=== PATIENT | female | born 1995 | race Caucasian/White ===

== ENCOUNTER 2016-09-13 20:47 | Emergency (ER) | payer MEDICAID ==
[2016-09-13 21:14] VITALS: BP 155/79
[2016-09-13] MEDS ORDERED: Amoxicillin 500 MG Cap PO ONE (21:40)
--- NOTE | 2016-09-13 21:40 | EDM.PDOC ---
ED HPI GENERAL MEDICAL PROBLEM - General Chief Complaint: ENT Problem Stated Complaint: TOOTHACHE RIGHT UPPER Time Seen by Provider: 09/13/16 21:35 Source of Information: Reports: Patient, Family - History of Present Illness INITIAL COMMENTS - FREE TEXT/NARRATIVE: With broken tooth to right upper month x5 months. With recent increase in dental pain. Is taking Ibuprofen for pain. Last dose 3 hours ago. Denies fever or chills. Unable to get a dental appointment until March. Onset: Gradual Onset Date: 09/11/16 Onset Time: 20:00 Duration: Waxing/Waning Quality: Reports: Dull, Sharp Improves with: Reports: None Worsens with: Reports: Cold Therapy, Eating Associated Symptoms: Reports: No Other Symptoms Right upper front tooth Pain Score (Numeric/FACES): 8 - Related Data Allergies Allergy/AdvReac Type Severity Reaction Status Date / Time cefprozil [From Cefzil] Allergy Hives Verified 09/13/16 21:30 cephalexin [From Keflex] Allergy Hives Verified 09/13/16 21:24 trazodone Allergy Hives Verified 09/13/16 21:24 Home Meds: Home Meds Albuterol [Ventolin HFA] 1 puff INH Q4H PRN 06/29/13 [History] FLUoxetine HCl [Prozac] 30 mg PO DAILY 06/29/13 [History] Omeprazole [Prilosec] 20 mg PO DAILY 06/29/13 [History] QUEtiapine Fumarate [Seroquel] 25 mg PO DAILY 06/29/13 [History] Social & Family History - Tobacco Use Smoking Status *Q: Never Smoker Second Hand Smoke Exposure: No - Caffeine Use Caffeine Use: Reports: Soda - Recreational Drug Use Recreational Drug Use: Yes ED ROS ENT - Review of Systems Review Of Systems: See Below HEENT: Reports: Dental Pain ED EXAM, ENT - Physical Exam Exam: See Below Exam Limited By: No Limitations General Appearance: Alert, WD/WN, No Apparent Distress Mouth/Throat: Normal Inspection, Normal Gums, Normal Lips, Normal Oropharynx, Normal Teeth, Dental Tenderness (broken tooth to right upper incisor) Head: Atraumatic, Normocephalic Neck: Normal Inspection, Supple, Non-Tender, Full Range of Motion Respiratory/Chest: No Respiratory Distress, Lungs Clear, Normal Breath Sounds, No Accessory Muscle Use, Chest Non-Tender Cardiovascular: Normal Peripheral Pulses, Regular Rate, Rhythm, No Edema, No Gallop, No JVD, No Murmur, No Rub Skin: Warm, Dry, Intact, Normal Color, No Rash Lymphatic: No Adenopathy Course - Vital Signs Last Recorded V/S: Last Vital Signs Temp 97.5 F 09/13/16 21:12 Pulse 67 09/13/16 21:12 Resp 16 09/13/16 21:12 BP 155/79 H 09/13/16 21:12 Pulse Ox 94 L 09/13/16 21:12 Departure - Departure Time of Disposition: 21:43 Disposition: Home, Self-Care 01 Condition: good Clinical Impression: Pain, dental - Discharge Information Forms: ED Department Discharge Additional Instructions: Rx for Amoxicillin 1000mg BID x 7 days given. 1st dose given here. Stress the need to have the tooth pulled. May use Tylenol or Ibuprofen as needed for pain. Followup as needed. - Problem List & Annotations (1) Pain, dental SNOMED Code(s): 99944601 Code(s): K08.89 - OTHER SPECIFIED DISORDERS OF TEETH AND SUPPORTING STRUCTURES Status: Acute Priority: Low Current Visit: Yes
== END 2016-09-13 22:08 | disposition home or self-care (01) ==
LOC: JP.ED 20:47
DX: K08.89 Other specified disorders of teeth and supporting structures (principal); Z88.8 Allergy status to other drugs, medicaments and biological substances; Z79.899 Other long term (current) drug therapy
CPT/HCPCS: 99283; A9270

== ENCOUNTER 2017-03-19 16:22 | Emergency (ER) | payer MEDICAID ==
[2017-03-19 16:36] VITALS: BP 143/88
--- NOTE | 2017-03-19 17:12 | EDM.PDOC ---
ED HPI GENERAL MEDICAL PROBLEM - General Chief Complaint: ENT Problem Stated Complaint: CONJESTION; SINUSES Time Seen by Provider: 03/19/17 17:00 Source of Information: Reports: Patient History Limitations: Reports: No Limitations - History of Present Illness INITIAL COMMENTS - FREE TEXT/NARRATIVE: 21-year-old female with worsening nasal congestion over the past week to 10 days. She is blowing persistent yellowish drainage from her nose. She has increased pressure over the frontal sinuses. She was seen in the clinic yesterday and was told she has a "cold" and started on what sounds like steroid nasal spray. She is worse today so came into the emergency room to get antibiotics. This is not a chronic recurring condition for her. No fevers or chills, some nausea but no vomiting, no sore throat or cough. Onset: Gradual Duration: Week(s): (2 weeks) Severity: Mild Face Pain Score (Numeric/FACES): 5 - Related Data Allergies Allergy/AdvReac Type Severity Reaction Status Date / Time cefprozil [From Cefzil] Allergy Hives Verified 03/19/17 16:47 cephalexin [From Keflex] Allergy Hives Verified 03/19/17 16:47 trazodone Allergy Hives Verified 03/19/17 16:47 Home Meds: Home Meds Albuterol [Ventolin HFA] 1 puff INH Q4H PRN 06/29/13 [History] FLUoxetine HCl [Prozac] 30 mg PO DAILY 06/29/13 [History] Omeprazole [Prilosec] 20 mg PO DAILY 06/29/13 [History] QUEtiapine Fumarate [Seroquel] 25 mg PO DAILY 06/29/13 [History] Past Medical History Respiratory History: Reports: Asthma Gastrointestinal History: Reports: GERD 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: Psychiatric History: Reports: Anxiety, Autism, Depression - Past Surgical History HEENT Surgical History: Reports: Tonsillectomy Cardiovascular Surgical History: Reports: None Respiratory Surgical History: Reports: None GI Surgical History: Reports: Appendectomy Endocrine Surgical History: Reports: None Neurological Surgical History: Reports: None Musculoskeletal Surgical History: Reports: None Dermatological Surgical History: Reports: None Social & Family History - Family History Family Medical History: Unobtainable - Tobacco Use Smoking Status *Q: Never Smoker Second Hand Smoke Exposure: No - Caffeine Use Caffeine Use: Reports: Soda - Recreational Drug Use Recreational Drug Use: No ED ROS ENT - Review of Systems Review Of Systems: See Below Constitutional: Reports: Malaise. Denies: Fever, Chills HEENT: Reports: Sinus Problem (Pressure and pain). Denies: Ear Pain, Throat Pain Respiratory: Denies: Shortness of Breath, Cough Cardiovascular: Denies: Chest Pain GI/Abdominal: Denies: Nausea, Vomiting Skin: Reports: No Symptoms Neurological: Reports: Headache ED EXAM, ENT - Physical Exam Exam: See Below Exam Limited By: No Limitations General Appearance: Alert, No Apparent Distress (Patient does look uncomfortable but not distressed) Eye Exam: Bilateral Eye: Normal Inspection Ears: Normal TMs Nose: Injected Turbinates Mouth/Throat: Normal Inspection (Tonsils are absent) Head: Atraumatic, Sinus Tenderness (She does have fairly significant percussion tenderness over the frontal sinuses and maxillary sinuses). No: Facial Swelling Respiratory/Chest: No Respiratory Distress, Lungs Clear Course - Vital Signs Last Recorded V/S: Last Vital Signs Temp 96.6 F 03/19/17 16:46 Pulse 101 H 03/19/17 16:46 Resp 16 03/19/17 16:46 BP 143/88 H 03/19/17 16:46 Pulse Ox 96 03/19/17 16:46 - Re-Assessments/Exams Free Text/Narrative Re-Assessment/Exam: 03/19/17 17:10 Explained to the patient that this is likely inflammatory such as viral or allergy and I believe the steroids will help if she gives it a try. She was very disappointed and is convinced she needs antibiotics, even after I explained that she may get side effects of the antibiotics which are worse than the treatment she still wanted to try. I agreed with amoxicillin 500 mg 3 times a day for the next 10 days, and she is to finish the prescription if she is improving in the next 2-4 days. She can continue with the nasal spray as directed. Departure - Departure Time of Disposition: 17:21 Disposition: Home, Self-Care 01 Condition: Good Clinical Impression: Sinusitis Qualifiers: Sinusitis location: frontal Chronicity: acute Recurrence: non-recurrent Qualified Code(s): J01.10 - Acute frontal sinusitis, unspecified - Discharge Information Instructions: Sinusitis, Adult, [id number] Referrals: Layne Walter PA [Primary Care Provider] - Forms: ED Department Discharge Care Plan Goals: Take antibiotic 3 times a day until gone, unless not improving recheck in 3-4 days. Continue with nasal spray as directed.
== END 2017-03-19 17:20 | disposition home or self-care (01) ==
LOC: JP.ED 16:22
DX: J01.10 Acute frontal sinusitis, unspecified (principal); J45.909 Unspecified asthma, uncomplicated; Z79.899 Other long term (current) drug therapy; Z88.1 Allergy status to other antibiotic agents; Z88.8 Allergy status to other drugs, medicaments and biological substances
CPT/HCPCS: 99283

== ENCOUNTER 2020-11-15 18:16 | Emergency (ER) | payer MEDICAID ==
[2020-11-15 18:30] VITALS: BP 135/96; PULSE 96
[2020-11-15] MEDS ORDERED: Tetracaine HCl/PF 0.5% 4 ML Bottle EYELF ONE (19:02)
--- NOTE | 2020-11-15 19:05 | EDM.PDOC ---
ED HPI GENERAL MEDICAL PROBLEM - General Chief Complaint: Eye Problems Stated Complaint: GLASS IN LEFT EYE Time Seen by Provider: 11/15/20 19:03 Source of Information: Reports: Patient History Limitations: Reports: No Limitations - History of Present Illness INITIAL COMMENTS - FREE TEXT/NARRATIVE: pt had a piece of glass in the corner of her left eye. Onset: Today, Sudden Duration: Hour(s): Location: Reports: Face Associated Symptoms: Reports: No Other Symptoms Left Eye Pain Score (Numeric/FACES): 4 - Related Data Allergies Allergy/AdvReac Type Severity Reaction Status Date / Time cefprozil [From Cefzil] Allergy Hives Verified 11/15/20 18:56 cephalexin [From Keflex] Allergy Hives Verified 11/15/20 18:56 kiwi Allergy Anaphylactic Verified 11/15/20 18:56 Shock trazodone Allergy Hives Verified 11/15/20 18:56 Home Meds: Home Meds Albuterol [Ventolin HFA] 1 puff INH Q4H PRN 06/29/13 [History] FLUoxetine HCl [Prozac] 30 mg PO DAILY 06/29/13 [History] QUEtiapine Fumarate [Seroquel] 25 mg PO DAILY 06/29/13 [History] Past Medical History Respiratory History: Reports: Asthma Gastrointestinal History: Reports: GERD [employer]IT[employer]ER History: Reports: Psychiatric History: Reports: Anxiety, Autism, Depression - Past Surgical History HEENT Surgical History: Reports: Tonsillectomy Cardiovascular Surgical History: Reports: None Respiratory Surgical History: Reports: None GI Surgical History: Reports: Appendectomy Endocrine Surgical History: Reports: None Neurological Surgical History: Reports: None Musculoskeletal Surgical History: Reports: None Dermatological Surgical History: Reports: None Social & Family History - Family History Family Medical History: Unobtainable - Tobacco Use Tobacco Use Status *Q: Current Every Day Tobacco User Years of Tobacco use: 1 Packs/Tins Daily: 0.5 - Caffeine Use Caffeine Use: Reports: None - Recreational Drug Use Recreational Drug Use: No ED ROS GENERAL - Review of Systems Review Of Systems: See Below Constitutional: Reports: No Symptoms HEENT: Reports: Eye Pain Respiratory: Reports: No Symptoms Cardiovascular: Reports: No Symptoms Endocrine: Reports: No Symptoms GI/Abdominal: Reports: No Symptoms : Reports: No Symptoms Musculoskeletal: Reports: No Symptoms Skin: Reports: No Symptoms ED EXAM GENERAL W FULL EYE - Physical Exam Exam: See Below Text/Narrative:: pt arrived with pain and burning in the left eye. She is having difficulty opening her eye and therefore her vision is blurry. Exam Limited By: No Limitations General Appearance: Alert, Anxious, Mild Distress, Cachetic (tetracaine was ins erted in the eye and she was more comfortable. no foreign body could bee seen. The eye was stained and she has a superficial corneal abasion in the mid portion of the cornea. She has no bleeding or sign of laceration. ), Other (pt has some swelling at the corner of her left eye where she had a piece of glass sitting. A glass broke and fell her direction. ) Ears: Normal TMs Nose: Normal Inspection Throat/Mouth: Normal Inspection Head: Atraumatic Course - Vital Signs Last Recorded V/S: Last Vital Signs Temp 35.7 C L 11/15/20 18:55 Pulse 96 11/15/20 18:55 Resp 16 11/15/20 18:55 BP 135/96 H 11/15/20 18:55 Pulse Ox 97 11/15/20 18:55 - Orders/Labs/Meds Orders: Active Orders 24 hr Category Date Time Status Gentamicin [Gentak 0.3% Ophth Oint] Med 11/15/20 21:00 Ordered 1 gm EYELF TID Meds: Medications Discontinued Medications Generic Name Dose Route Start Last Admin Trade Name Audiq PRN Reason Stop Dose Admin Tetracaine HCl 1 ml 11/15/20 19:02 11/15/20 19:07 Tetracaine Hcl/Pf 0.5% 4 Ml Bottle EYELF 11/15/20 19:03 1 ml ASDIRECTED ONE Administration - Re-Assessments/Exams Free Text/Narrative Re-Assessment/Exam: 11/15/20 19:29 pt had further tetracin inserted. Gentamycin eye ointment was inserted in the eye and the eye was patched. Departure - Departure Time of Disposition: 19:31 Disposition: Home, Self-Care 01 Condition: Fair Clinical Impression: Corneal abrasion, left - Discharge Information Referrals: PCP,None [Primary Care Provider] - Forms: ED Department Discharge Care Plan Goals: eye was patched in ER with gentamycin ointment, leave patch on for the next 12 hours then remove and start gentamycin drops tid. Motrin 600mg can be used for pain. If there is concern about blurry vision in the next 2 days either check vback at the ER or go to the eye clinic. gentmycin eye drop 2-3 dropd tic Sepsis Event Note (ED) - Evaluation Sepsis Screening Result: No Definite Risk - Focused Exam Vital Signs: Vital Signs Temp Pulse Resp BP Pulse Ox 11/15/20 18:55 35.7 C L 96 16 135/96 H 97 11/15/20 18:28 35.7 C L 96 16 135/96 H 97 - My Orders Last 24 Hours: My Active Orders 11/15/20 21:00 Gentamicin [Gentak 0.3% Ophth Oint] 1 gm EYELF TID - Assessment/Plan Last 24 Hours: My Active Orders 11/15/20 21:00 Gentamicin [Gentak 0.3% Ophth Oint] 1 gm EYELF TID
[2020-11-15] MEDS ORDERED: Ibuprofen 600 MG Tab PO ONE (19:30)
== END 2020-11-15 19:48 | disposition home or self-care (01) ==
LOC: JP.ED 18:16
DX: S05.02XA Injury of conjunctiva and corneal abrasion without foreign body, left eye, initial encounter (principal); Z91.018 Allergy to other foods; Z88.1 Allergy status to other antibiotic agents; Z88.5 Allergy status to narcotic agent; Z72.0 Tobacco use; W25.XXXA Contact with sharp glass, initial encounter
CPT/HCPCS: 99283; A9270

== ENCOUNTER 2021-11-11 16:46 | Emergency (ER) | payer MEDICAID ==
[2021-11-11] MEDS ORDERED: Ondansetron 4 MG/2 ML SDV IVPUSH ONE (18:47)
[2021-11-11] MEDS ORDERED: Sodium Chloride 0.9% 1,000 ML IV SCH (19:00)
[2021-11-11 20:16] VITALS: BP 133/100; PULSE 80
== END 2021-11-11 20:37 | disposition home or self-care (01) ==
LOC: JP.ED 16:46
DX: E86.0 Dehydration (principal); N39.0 Urinary tract infection, site not specified; J45.909 Unspecified asthma, uncomplicated; F17.210 Nicotine dependence, cigarettes, uncomplicated; Z88.1 Allergy status to other antibiotic agents; Z91.018 Allergy to other foods; Z88.8 Allergy status to other drugs, medicaments and biological substances; Z79.899 Other long term (current) drug therapy; Z20.822 Contact with and (suspected) exposure to COVID-19
CPT/HCPCS: 36415; 80048; 80305; 81001; 81025; 83735; 85025; 87635; 96360; 99284; J7030; U0002

== ENCOUNTER 2022-02-12 23:12 | Emergency (ER) | payer MEDICAID ==
[2022-02-12 23:30] VITALS: BP 147/96; PULSE 97
[2022-02-13 00:26] LABS: ESTIMATED GFR 104 mL/min (>60)
[2022-02-13 00:43] LABS: CORONAVIRUS COVID-19 NAA NEGATIVE (NEGATIVE)
== END 2022-02-13 01:16 | disposition home or self-care (01) ==
LOC: JP.ED 23:12
DX: R06.02 Shortness of breath (principal); B97.4 Respiratory syncytial virus as the cause of diseases classified elsewhere; Z20.822 Contact with and (suspected) exposure to COVID-19
CPT/HCPCS: 0241U; 36415; 71046; 80053; 85025; 86140; 99283